=== PATIENT | female | born 1995 | race Caucasian/White ===

== ENCOUNTER 2022-08-09 12:36 | Inpatient (IN) ==
[2022-08-09] MEDS ORDERED: SODIUM CHLORIDE 0.9% 1000ML 1,000 ML IV STA (13:26)
[2022-08-09] MEDS ORDERED: ONDANSETRON INJ 2 MG/ML 2 ML VIAL IV STA (13:28)
[2022-08-09] MEDS: fentaNYL citrate 100 MCG/2 ML VIAL IV PRN ×2 (13:34→18:47)
--- NOTE | 2022-08-09 13:37 | Emergency Department Note ---
Impression & Plan Abscess of liver, Endometritis Hand Off ED Provider Note HPI: The patient is a 26-year-old female who presents to the emergency department after being seen by her [facility] provider, Dr. Downs, in the office today and there was concern for endometritis. Patient has a history of recent missed and was given Cytotec on 07/07/22, she has had some bleeding intermitt ently since then and developed some foul-smelling vaginal discharge over this past weekend, patient was started on Augmentin and she states from that standpoint her symptoms have improved. She was evaluated today in the office by [facility], Dr. Downs, she was noted to have a fever and had findings on pelvic exam that were concerning for endometritis, patient was also complaining of some chest discomfort that seem pleuritic in nature and she was tachycardic in addition to febrile and therefore was referred to the ED for further assessment. Patient also was complaining of some new onset right-sided abdominal pain. On arrival the patient is tearful, she is anxious appearing, she is mildly tachy cardic at 114 and noted to be febrile at 38.1, patient is saturating well on room air and blood pressure stable on arrival. ROS: -GI: Right-sided abdominal pain *10 point review systems was conducted and is otherwise negative unless stated above *Outpatient medications and allergy history reviewed PE: General: Alert HEENT: Normocephalic, trachea midline Eyes: Extraocular eye movement is intact, no scleral erythema Pulmonary: Clear to auscultation bilaterally, no wheezing Cardio: Regular rate and rhythm GI: Abdomen is soft, there is right-sided tenderness to palpation without rigidity : No suprapubic tenderness MSK: No evidence of trauma or malformation of the extremities, no edema Skin: No evidence of rash Neuro: Alert, no focal deficits Psychiatric: Cooperative hospital monitor: - An order was placed for continuous cardiac monitoring - Patient was noted to be in sinus tachycardia with a rate of 115 EKG: Rate: 107 Rhythm: Sinus tachycardia Intervals: Within normal limits ST changes: No ST elevation Time: 1350 Interventions provided in ED: -IV Unasyn, IV doxycycline, IV morphine, IV Zofran, IV fluid Medical Decision Making: Patient presented to the emergency department from the [facility] office over concern for endometritis as well as chest pain. On arrival here to the ED the patient is anxious appearing, she is tachycardic, she is saturating well on room air and otherwise is with stable blood pressure. IV was established, lab work obtained, previous notes reviewed. Patient was seen in the [facility] office today and had a pelvic exam performed that was concerning for endometritis, her symptoms in this regard have been improving over the past week while on Augmentin but there is some concern for retained products of conception on recent ultrasound imaging. Patient is tachycardic and febrile on arrival, blood cultures were drawn in the ED and patient was given IV fluids, she was started on IV Unasyn as well as IV doxycycline. Patient was given greater than 30 cc/kg of ideal body weight for fluid resuscitation given possibility of systemic infection with tachycardia and fever as well as leukocytosis. Patient complained of some chest pain as well as some right-sided abdominal pain, CT angiography of the chest was obtained that does not show any evidence of PE, CT abdomen and pelvis with IV contrast shows evidence of a 3.7 cm hepatic abscess. This is in the location where the patient is having pain. She has a mild leukocytosis and left shift in addition to the fact that she had a fever on arrival, COVID-19 testing is negative. I do suspect this may be playing a role in her symptoms, unclear how this might of developed. I discussed the case again with on-call [facility], Dr. Thompson, who recommended at this time that the patient be transferred for interventional radiology services, states that dilation and curettage can be performed urgently but does not need to be done emergently as the patient has improved symptomatically over the past several days from this regard and recent ultrasound imaging only showed a small nonspecific area concerning for retained products of conception. I discussed this with the patient, following our discussion decision was made that we will first contact [facility] in [place], [place], for arrangement of transfer for interventional radiology services and [facility] consultation in regards to possible D&C for endometritis. Case was then discussed with the on-call triage/transfer physician for [facility], Dr. Coppola, who stated that he would discussed the case and imaging with the interventional radiology team at [facility] and return a phone call back t o me in regards to possible transfer. Case was signed out to my colleague, Dr. Jimenez, pending recommendations from the [facility] center and Dr. Coppola once the case is reviewed with our interventional radiology team. We will plan to admit to [facility] here at [facility] on a temporary basis if there is an issue regarding interventional radiology or bed availability. Patient was signed out in stable condition pending final disposition. Diagnosis: 1. Hepatic abscess 2. Endometritis 3. Fever 4. Leukocytosis Disposition: Hand Off Isrrael Garcia DO Emergency Medicine Past Med/Surg History Medical History (Updated 08/09/22 @ 17:33 by Isrrael Garcia DO) History of in vitro fertilization Hypothyroid Surgical History (Updated 06/29/22 @ 13:20 by Brooklyn Downs MD, FACOG) History of tooth extraction Hx of LASIK Status post tonsillectomy and adenoidectomy Family History (Updated 06/29/22 @ 12:52 by Micki Hutchins LPN) Grandfather (Paternal) Prostate cancer Denies family history of Ovarian cancer Breast cancer Colorectal cancer Social History Smoking Status: Never smoker Hx Alcohol Use: Yes Hx Substance Use: No Preferred Language: Martiniquais Communication Ability: Effective Police Manager Required: No Beliefs That Will Affect Care: None Current Living Situation: Spouse Feels Safe at Home: Yes Safety Concerns: Feels Safe At This Time Assistive Devices: None Allergies Allergies Allergy/AdvReac Type Severity Reaction Status Date / Time pollen extracts Allergy Intermediate ITCHY Verified 08/09/22 18:12 EYES, SNEEZING, CONGESTION Home Meds Home Medications Medication Instructions Recorded Confirmed acetaminophen 500 mg tablet 1,000 mg PO DIRECTED PRN Pain 08/09/22 08/09/22 (Tylenol Extra Strength) docusate sodium 100 mg capsule 100 mg PO DIRECTED PRN 08/09/22 08/09/22 (Colace) Constipation ferrous sulfate 325 mg (65 mg 325 mg PO DAILY 08/09/22 08/09/22 iron) tablet (iron) ketorolac 10 mg tablet 10 mg PO TID PRN Pain 08/09/22 08/09/22 metronidazole 500 mg tablet 500 mg PO TID 08/09/22 08/09/22 sulfamethoxazole 800 1 tab PO BID 08/09/22 08/09/22 mg-trimethoprim 160 mg tablet (Bactrim DS) Previous Rx's Medication Instructions Recorded amoxicillin 875 mg-potassium 1 tab PO BID #20 tabs 08/06/22 clavulanate 125 mg tablet Results & Data (ED) Vital Signs Vital Signs - 24 hr 08/09/22 13:14 08/09/22 15:27 08/09/22 17:18 Temperature 38.1 C H Temperature Source Temporal Artery Scan Pulse Rate 114 H Pulse Rate [Apical] 113 H 106 H Respiratory Rate 20 16 16 Respiratory Effort / Characteristics Non-Labored Respiratory Depth Normal Respiratory Pattern Blood Pressure 127/71 Blood Pressure [Left Arm] 113/83 117/80 Blood Pressure Mean 89 Blood Pressure Mean [Left Arm] 93 92 Blood Pressure Position [Left Arm] Pulse Oximetry 96 100 99 Oxygen Delivery Method Room Air Sepsis Recent Fever Within 48 Hours Yes Sepsis New/Unexplained Change in Mental Status N/A Sepsis Action Taken by Nursing No Action Required 08/09/22 19:00 08/09/22 20:10 08/09/22 21:00 Temperature 39.5 C H Temperature Source Oral Pulse Rate Pulse Rate [Apical] 103 H 109 H Respiratory Rate 18 18 Respiratory Effort / Characteristics Non-Labored Spontaneous Non-Labored Spontaneous Respiratory Depth Normal Normal Respiratory Pattern Regular Regular Blood Pressure Blood Pressure [Left Arm] 138/72 125/78 Blood Pressure Mean Blood Pressure Mean [Left Arm] 94 93 Blood Pressure Position [Left Arm] Sitting Sitting Pulse Oximetry 97 96 Oxygen Delivery Method Room Air Room Air Sepsis Recent Fever Within 48 Hours Sepsis New/Unexplained Change in Mental Status Sepsis Action Taken by Nursing Laboratory Data Result diagrams: 08/10/22 06:11 08/10/22 06:11 Lab Results 08/09/22 08/09/22 08/09/22 Range/Units 13:37 13:37 13:37 WBC 11.60 H (4.8-10.8) K/ul RBC 3.61 L (3.93-5.22) M/uL Hgb 9.1 L (12.0-16.0) g/dl Hct 28.2 L (34.1-44.9) % MCV 78.1 L (80.0-100.0) fL MCH 25.2 (25.0-34.0) pg MCHC 32.3 (32.0-36.0) g/dL RDW Std Deviation 37.3 (36.4-46.3) fL RDW Coeff of Joey 13.0 (11.5-14.5) % Plt Count 327 (130-400) K/uL MPV 9.4 (9.4-12.3) fL Immature Gran % (Auto) 0.9 % Neut % (Auto) 77.8 % Lymph % (Auto) 12.9 % [place] % (Auto) 7.6 % Eos % (Auto) 0.5 % Baso % (Auto) 0.3 % Neut # (Auto) 9.01 H (1.4-6.5) K/uL Lymph # (Auto) 1.50 (1.2-3.4) K/uL [place] # (Auto) 0.88 H (0.24-0.82) K/uL Eos # (Auto) 0.06 (0-0.50) K/uL Baso # (Auto) 0.04 (0-0.2) K/uL Immature Gran # (Auto) 0.11 H (0.00-0.02) K/uL ESR 76 H (0-20) mm/hr Sodium 137 (136-145) mmol/L Potassium 3.9 (3.5-5.1) mmol/L Chloride 104 (98-107) mmol/L Carbon Dioxide 22 (21-32) mmol/L Anion Gap 11 (3-11) BUN 10 (6-23) mg/dl Creatinine 0.83 (0.6-1.2) mg/dl Est Cr Clr Drug Dosing 111.8 ml/min Est GFR ( Amer) 112.0 ml/min Est GFR (Non-Af Amer) 96.6 ml/min BUN/Creatinine Ratio 12.0 (10-20) Glucose 88 (70-99(Fasting)) mg/dl Lactate (0.4-2.0) mmol/L Calcium 9.1 (8.5-10.1) mg/dl Total Bilirubin 0.4 (0.2-1.0) mg/dl AST 20 (13-39) U/L ALT 32 (7-52) U/L Alkaline Phosphatase 112 H (34-104) U/L Troponin I High Sens < 2.3 (0-14) pg/ml C-Reactive Protein 13.47 H (0-0.5) mg/dl Total Protein 7.7 (6.0-8.3) gm/dl Albumin 3.8 (3.4-5.0) gm/dl Globulin 3.9 (2.5-4.0) gm/dl Albumin/Globulin Ratio 1.0 (0.9-2) Lipase 26 (11-82) U/L Procalcitonin (0-0.5) ng/ml HCG, Quant mIU/ml Urine Color Urine Appearance (Clear) Urine pH (4.5-7.5) Ur Specific [place] (1.000-1.030) Urine Protein (Negative) Urine Glucose (UA) (Negative) Urine Ketones (Negative) Urine Blood (Negative) Urine Nitrite (Negative) Urine Bilirubin (Negative) Urine Urobilinogen (Negative) Ur Leukocyte Esterase (Negative) SARS-CoV-2 (PCR) (Negative) Influenza Type A (PCR) (Neg) Influenza Type B (PCR) (Neg) RSV (RT-PCR) (Neg) Blood Type 08/09/22 08/09/22 08/09/22 Range/Units 13:37 13:37 13:37 WBC (4.8-10.8) K/ul RBC (3.93-5.22) M/uL Hgb (12.0-16.0) g/dl Hct (34.1-44.9) % MCV (80.0-100.0) fL MCH (25.0-34.0) pg MCHC (32.0-36.0) g/dL RDW Std Deviation (36.4-46.3) fL RDW Coeff of Joey (11.5-14.5) % Plt Count (130-400) K/uL MPV (9.4-12.3) fL Immature Gran % (Auto) % Neut % (Auto) % Lymph % (Auto) % [place] % (Auto) % Eos % (Auto) % Baso % (Auto) % Neut # (Auto) (1.4-6.5) K/uL Lymph # (Auto) (1.2-3.4) K/uL [place] # (Auto) (0.24-0.82) K/uL Eos # (Auto) (0-0.50) K/uL Baso # (Auto) (0-0.2) K/uL Immature Gran # (Auto) (0.00-0.02) K/uL ESR (0-20) mm/hr Sodium (136-145) mmol/L Potassium (3.5-5.1) mmol/L Chloride (98-107) mmol/L Carbon Dioxide (21-32) mmol/L Anion Gap (3-11) BUN (6-23) mg/dl Creatinine (0.6-1.2) mg/dl Est Cr Clr Drug Dosing ml/min Est GFR ( Amer) ml/min Est GFR (Non-Af Amer) ml/min BUN/Creatinine Ratio (10-20) Glucose (70-99(Fasting)) mg/dl Lactate 1.1 (0.4-2.0) mmol/L Calcium (8.5-10.1) mg/dl Total Bilirubin (0.2-1.0) mg/dl AST (13-39) U/L ALT (7-52) U/L Alkaline Phosphatase (34-104) U/L Troponin I High Sens (0-14) pg/ml C-Reactive Protein (0-0.5) mg/dl Total Protein (6.0-8.3) gm/dl Albumin (3.4-5.0) gm/dl Globulin (2.5-4.0) gm/dl Albumin/Globulin Ratio (0.9-2) Lipase (11-82) U/L Procalcitonin 0.24 (0-0.5) ng/ml HCG, Quant 4 mIU/ml Urine Color Urine Appearance (Clear) Urine pH (4.5-7.5) Ur Specific [place] (1.000-1.030) Urine Protein (Negative) Urine Glucose (UA) (Negative) Urine Ketones (Negative) Urine Blood (Negative) Urine Nitrite (Negative) Urine Bilirubin (Negative) Urine Urobilinogen (Negative) Ur Leukocyte Esterase (Negative) SARS-CoV-2 (PCR) (Negative) Influenza Type A (PCR) (Neg) Influenza Type B (PCR) (Neg) RSV (RT-PCR) (Neg) Blood Type 08/09/22 08/09/22 08/09/22 Range/Units 13:51 13:55 15:24 WBC (4.8-10.8) K/ul RBC (3.93-5.22) M/uL Hgb (12.0-16.0) g/dl Hct (34.1-44.9) % MCV (80.0-100.0) fL MCH (25.0-34.0) pg MCHC (32.0-36.0) g/dL RDW Std Deviation (36.4-46.3) fL RDW Coeff of Joey (11.5-14.5) % Plt Count (130-400) K/uL MPV (9.4-12.3) fL Immature Gran % (Auto) % Neut % (Auto) % Lymph % (Auto) % [place] % (Auto) % Eos % (Auto) % Baso % (Auto) % Neut # (Auto) (1.4-6.5) K/uL Lymph # (Auto) (1.2-3.4) K/uL [place] # (Auto) (0.24-0.82) K/uL Eos # (Auto) (0-0.50) K/uL Baso # (Auto) (0-0.2) K/uL Immature Gran # (Auto) (0.00-0.02) K/uL ESR (0-20) mm/hr Sodium (136-145) mmol/L Potassium (3.5-5.1) mmol/L Chloride (98-107) mmol/L Carbon Dioxide (21-32) mmol/L Anion Gap (3-11) BUN (6-23) mg/dl Creatinine (0.6-1.2) mg/dl Est Cr Clr Drug Dosing ml/min Est GFR ( Amer) ml/min Est GFR (Non-Af Amer) ml/min BUN/Creatinine Ratio (10-20) Glucose (70-99(Fasting)) mg/dl Lactate (0.4-2.0) mmol/L Calcium (8.5-10.1) mg/dl Total Bilirubin (0.2-1.0) mg/dl AST (13-39) U/L ALT (7-52) U/L Alkaline Phosphatase (34-104) U/L Troponin I High Sens (0-14) pg/ml C-Reactive Protein (0-0.5) mg/dl Total Protein (6.0-8.3) gm/dl Albumin (3.4-5.0) gm/dl Globulin (2.5-4.0) gm/dl Albumin/Globulin Ratio (0.9-2) Lipase (11-82) U/L Procalcitonin (0-0.5) ng/ml HCG, Quant mIU/ml Urine Color Yellow Urine Appearance Clear (Clear) Urine pH 7.0 (4.5-7.5) Ur Specific [place] 1.018 (1.000-1.030) Urine Protein Negative (Negative) Urine Glucose (UA) Negative (Negative) Urine Ketones Negative (Negative) Urine Blood Negative (Negative) Urine Nitrite Negative (Negative) Urine Bilirubin Negative (Negative) Urine Urobilinogen Negative (Negative) Ur Leukocyte Esterase Negative (Negative) SARS-CoV-2 (PCR) NEGATIVE (Negative) Influenza Type A (PCR) Negative (Neg) Influenza Type B (PCR) Negative (Neg) RSV (RT-PCR) Negative (Neg) Blood Type AB Negative Administered Medications Ferrous Sulfate (Ferrous Sulfate 325 Mg Tab) 325 mg PO DAILY [facility] Stop: 09/09/22 08:59 Last Admin: 08/10/22 07:55 Dose: Not Given Documented By: COLLIN Lactated Ringer's (Lr) 1,000 mls @ 125 mls/hr IV .Q8H [facility] Stop: 09/08/22 18:29 Last Admin: 08/10/22 04:50 Dose: 125 mls/hr Documented By: Infusion: 08/10/22 02:48 Dose: 125 mls/hr Documented By: Admin: 08/09/22 18:48 Dose: 125 mls/hr Documented By: GUILHERME Acetaminophen (Ofirmev) 1,000 mg in 100 mls @ 400 mls/hr IV Q8H PRN PRN Reason: pain or fever Stop: 08/12/22 23:23 Last Infusion: 08/10/22 02:06 Dose: 400 mls/hr Documented By: Admin: 08/10/22 01:47 Dose: 400 mls/hr Documented By: CHANA Metronidazole (Flagyl) 500 mg in 100 mls @ 100 mls/hr IV Q8H [facility] Stop: 08/12/22 05:59 Last Infusion: 08/10/22 07:55 Dose: 0 mls/hr Documented By: Admin: 08/10/22 06:15 Dose: 100 mls/hr Documented By: CHANA Fluconazole (Diflucan) 200 mg in 100 mls @ 100 mls/hr IV DAILY@0100,0200 [facility]; Protocol Stop: 08/12/22 00:59 Last Infusion: 08/10/22 06:15 Dose: 100 mls/hr Documented By: Admin: 08/10/22 03:58 Dose: 100 mls/hr Documented By: Infusion: 08/10/22 03:05 Dose: 100 mls/hr Documented By: Admin: 08/10/22 02:05 Dose: 100 mls/hr Documented By: CHANA Cefepime HCl 2,000 mg/ Syringe 20 mls @ 5 mls/min IV Q8H [facility]; Protocol Stop: 08/12/22 05:59 Last Admin: 08/10/22 08:36 Dose: 5 mls/min Documented By: COLLIN Morphine Sulfate (Morphine Sulfate 4 Mg/Ml 1 Ml Carp\Vial) 4 mg IV Q3H PRN PRN Reason: Pain (6,7,8,9,10) Stop: 08/23/22 23:23 Last Admin: 08/10/22 06:15 Dose: 4 mg Documented By: CHANA Discontinued Medications Diphenhydramine HCl (Diphenhydramine 50 Mg/Ml Vial) 25 mg IV NOW STA Stop: 08/10/22 01:48 Last Admin: 08/10/22 02:01 Dose: 25 mg Documented By: CHANA Fentanyl Citrate (Fentanyl Citrate 100 Mcg/2 Ml Vial) 50 mcg IV Q15M PRN PRN Reason: Pain Stop: 08/23/22 13:27 Last Admin: 08/09/22 18:47 Dose: 50 mcg Documented By: Admin: 08/09/22 13:34 Dose: 50 mcg Documented By: DA Sodium Chloride (Nss 1000ml) 1,000 mls @ 999 mls/hr IV .Q1H1M STA Stop: 08/09/22 14:26 Last Infusion: 08/09/22 15:30 Dose: 0 mls/hr Documented By: Admin: 08/09/22 13:35 Dose: 999 mls/hr Documented By: DA Ampicillin Sodium/Sulbactam Sodium 3,000 mg/ Sodium Chloride 108 mls @ 200 mls/hr IV NOW STA; Protocol Stop: 08/09/22 14:11 Last Infusion: 08/09/22 15:30 Dose: 0 mls/hr Documented By: Admin: 08/09/22 14:06 Dose: 200 mls/hr Documented By: MT Doxycycline Hyclate 100 mg/ (Dextrose) 110 mls @ 50 mls/hr IV NOW STA Stop: 08/09/22 15:50 Last Infusion: 08/09/22 18:40 Dose: 0 mls/hr Documented By: Admin: 08/09/22 15:24 Dose: 50 mls/hr Documented By: SHARIF Sodium Chloride (Nss 1000ml) 1,000 mls @ 999 mls/hr IV .Q1H1M ONE Stop: 08/09/22 16:54 Last Infusion: 08/09/22 18:40 Dose: 0 mls/hr Documented By: Admin: 08/09/22 16:20 Dose: 999 mls/hr Documented By: SHARIF Ampicillin Sodium/Sulbactam Sodium 3,000 mg/ Sodium Chloride 108 mls @ 200 mls/hr IV Q6H [facility]; Protocol Stop: 08/11/22 19:59 Last Infusion: 08/10/22 06:32 Dose: 200 mls/hr Documented By: Admin: 08/10/22 04:53 Dose: 200 mls/hr Documented By: Infusion: 08/09/22 20:41 Dose: 0 mls/hr Documented By: Admin: 08/09/22 20:07 Dose: 200 mls/hr Documented By: VALENTINA Acetaminophen (Ofirmev) 1,000 mg in 100 mls @ 400 mls/hr IV NOW STA Stop: 08/09/22 20:27 Last Infusion: 08/09/22 21:12 Dose: 0 mls/hr Documented By: Admin: 08/09/22 20:41 Dose: 400 mls/hr Documented By: HAN Metronidazole (Flagyl) 500 mg in 100 mls @ 100 mls/hr IV NOW STA Stop: 08/09/22 22:07 Last Infusion: 08/09/22 22:58 Dose: 0 mls/hr Documented By: Admin: 08/09/22 21:40 Dose: 100 mls/hr Documented By: SIERRA Vancomycin HCl 2,250 mg/ (Sodium Chloride) 545 mls @ 200 mls/hr IV NOW ONE Stop: 08/09/22 23:51 Last Infusion: 08/10/22 04:51 Dose: 200 mls/hr Documented By: Admin: 08/09/22 23:34 Dose: 200 mls/hr Documented By: HJ Famotidine 20 mg/ Syringe 5 mls @ 2.5 mls/min IV 0200 ONE Stop: 08/10/22 02:01 Last Admin: 08/10/22 02:01 Dose: 2.5 mls/min Documented By: CHANA Ioversol (Optiray 320 125ml) 105 ml IV ONCE ONE Stop: 08/09/22 15:17 Last Admin: 08/09/22 15:16 Dose: 105 ml Documented By: BEN Ondansetron HCl (Ondansetron Inj 2 Mg/Ml 2 Ml Vial) 4 mg IV NOW STA Stop: 08/09/22 13:29 Last Admin: 08/09/22 13:34 Dose: 4 mg Documented By: DA Imaging Data Radiologist's Impression: Chest X-Ray 08/09/22 13:27 XR chest 1V portable CLINICAL HISTORY: Fever. COMPARISON STUDY: No previous studies for comparison. FINDINGS: Lung volumes are mildly diminished. Lungs are clear. There is no pneumothorax or pleural effusion. Cardiac size is normal. Mediastinal contours are normal. There is no evidence for pulmonary edema. IMPRESSION: No acute cardiopulmonary findings. Low lung volumes. ACT 112: Negative or not required by law. Electronically signed by: Jose Schaeffer M.D. 08/09/2022 3:01 PM Chest CTA 08/09/22 13:31 CT angio chest PE protocol CLINICAL HISTORY: PE TECHNIQUE: Multidetector row helical CT of the chest was performed with angiographic protocol. Coronal and sagittal reformations were obtained. Coronal and sagittal MIPS were obtained from the axial data set and were submitted for review. Automated dose lowering techniques and/or adjustment according to patient size were utilized for this exam. CT DOSE: 1522.56 mGycm Comparison: Comparison is made to chest radiograph 08/09/2022 FINDINGS: Lungs and pleura: Normal. Heart and pericardium: Heart size is normal. No pericardial effusion. Vessels: No evidence of pulmonary embolism. Mediastinum and eric: Unremarkable. Chest wall and lower neck: Unremarkable. Abdomen: For findings below the diaphragm, please refer to CT of the abdomen dated the same. Bones: Unremarkable. IMPRESSION: No evidence of pulmonary embolism. ACT 112: Negative or not required by law. Electronically signed by: Orlando Mendieta M.D. 08/09/2022 3:47 PM Abdomen/Pelvis CT 08/09/22 13:32 CT OF THE ABDOMEN AND PELVIS WITH CONTRAST CLINICAL HISTORY: Right-sided abdominal pain. COMPARISON STUDY: Pelvic ultrasound July 30, 2022. TECHNIQUE: Following IV administration of 105 mL of Optiray, axial images of the abdomen and pelvis were obtained from the lung bases to the proximal femurs. Images were reviewed in the axial, sagittal, and coronal planes. IV contrast was administered without complication. Automated exposure control was utilized for the study. A dose lowering technique was utilized adhering to the principles of ALARA. FINDINGS: Please note that the chest CT will be reported separately. There is a trace right pleural effusion. Note is made of a 3.7 x 2.6 cm segment 7 hypodense focus within the liver with a peripherally enhancing wall with probable associated edema. This is suggestive of a hepatic abscess. There is mild hepatosplenomegaly. No additional hepatic abscesses are present. The adrenal glands, kidneys and pancreas are unremarkable. There is no biliary or pancreatic ductal dilatation. There is no evidence for a bowel obstruction. The caliber and wall thickness of small and large bowel are normal. The appendix is normal. There is trace fluid within the pelvis. The lymphadenopathy is present. Major vasculature is patent. No acute fracture or suspicious lesion within the visualized skeletal structures is present. IMPRESSION: 1. Findings suggestive of a 3.7 x 2.6 cm segment 7 hepatic abscess. Trace right pleural effusion. 2. Mild hepatosplenomegaly. 3. No bowel obstruction. No bowel wall thickening. Normal appendix. 4. Trace fluid within the pelvis. ACT 112: Negative or not required by law. Electronically signed by: Jose Schaeffer M.D. 08/09/2022 3:44 PM Discharge Plan Visit Data Chief Complaint: Referred by Doctor Stated Complaint: REF BY , SEAN, ABDOMINAL PAIN, PELVIC PAIN ED Provider: Triston Jimenez Discharge Problem: Abscess of liver, Endometritis Patient Disposition: Admitted As Inpatient Discharge Instructions Interventions: ED Discharge Assessment Last Done: 08/09/22 23:22
[2022-08-09] MEDS ORDERED: DOXYCYCLINE HYCLATE 100 MG in DEXTROSE 5% 100 ML IV STA (13:39)
[2022-08-09] MEDS ORDERED: AMPICILLIN/SULBACTAM SOD 3,000 MG in 0.9 % SODIUM CHLORIDE 100 ML IV STA (13:39)
[2022-08-09 13:56] LABS: Basophils # (auto) 0.04 K/uL (0-0.2); Basophils % (auto) 0.3 %; Eosinophils # (auto) 0.06 K/uL (0-0.50); Eosinophils % (auto) 0.5 %; Hematocrit (blood only) 28.2 % (34.1-44.9); Hemoglobin 9.1 g/dl (12.0-16.0); Immature Granulocytes # (auto) 0.11 K/uL (0.00-0.02); Immature Granulocytes % (auto) 0.9 %; Lymphocytes % (auto) 12.9 %; Mean Corpuscular Hemoglobin 25.2 pg (25.0-34.0); Mean Corpuscular Hgb Conc 32.3 g/dL (32.0-36.0); Mean Corpuscular Volume 78.1 fL (80.0-100.0); Mean Platelet Volume 9.4 fL (9.4-12.3); Monocytes # (auto) 0.88 K/uL (0.24-0.82); Monocytes % (auto) 7.6 %; Neutrophils # (auto) 9.01 K/uL (1.4-6.5); Neutrophils % (auto) 77.8 %; Platelet Count 327 K/uL (130-400); RDW Standard Deviation 37.3 fL (36.4-46.3); Red Blood Count 3.61 M/uL (3.93-5.22)
[2022-08-09 14:25] LABS: Troponin I High Sensitivity < 2.3 pg/ml (0-14)
[2022-08-09 14:38] LABS: Alanine Aminotransferase 32 U/L (7-52); Albumin Level 3.8 gm/dl (3.4-5.0); Alkaline Phosphatase 112 U/L (34-104); Anion Gap 11 (3-11); Aspartate Aminotransferase 20 U/L (13-39); Bilirubin,Total 0.4 mg/dl (0.2-1.0); Blood Urea Nitrogen 10 mg/dl (6-23); C Reactive Protein 13.47 mg/dl (0-0.5); Calcium 9.1 mg/dl (8.5-10.1); Carbon Dioxide 22 mmol/L (21-32); Chloride 104 mmol/L (98-107); Creatinine Clr Calc Pharmacy 111.8 ml/min; Est GFR (Non-African American) 96.6 ml/min; Globulin 3.9 gm/dl (2.5-4.0); Glucose 88 mg/dl (70-99(Fasting)); Lipase 26 U/L (11-82); Potassium 3.9 mmol/L (3.5-5.1); Sodium 137 mmol/L (136-145); Total Protein 7.7 gm/dl (6.0-8.3)
[2022-08-09 14:53] LABS: Influenza A virus by PCR Negative (Neg); Influenza B virus by PCR Negative (Neg); RSV by PCR Negative (Neg); SARS CoV2 RNA(COVID-19) InHosp NEGATIVE (Negative)
--- NOTE | 2022-08-09 15:02 | XRay Report ---
XR chest 1V portable CLINICAL HISTORY: Fever. COMPARISON STUDY: No previous studies for comparison. FINDINGS: Lung volumes are mildly diminished. Lungs are clear. There is no pneumothorax or pleural ef fusion. Cardiac size is normal. Mediastinal contours are normal. There is no evidence for pulmonary e ilia. IMPRESSION: No acute cardiopulmonary findings. Low lung volumes. ACT 112: Negative or not required by law. Electronically signed by: Jose Schaeffer M.D. 08/09/2022 3:01 PM
[2022-08-09] MEDS ORDERED: OPTIRAY 320 125ml IV ONE (15:16)
--- NOTE | 2022-08-09 15:45 | CT Scan Report ---
CT OF THE ABDOMEN AND PELVIS WITH CONTRAST CLINICAL HISTORY: Right-sided abdominal pain. COMPARISON STUDY: Pelvic ultrasound July 30, 2022. TECHNIQUE: Following IV administration of 105 mL of Optiray, axial images of the abdomen and pelvis w ere obtained from the lung bases to the proximal femurs. Images were reviewed in the axial, sagittal, and coronal planes. IV contrast was administered without complication. Automated exposure control w as utilized for the study. A dose lowering technique was utilized adhering to the principles of JOSÉ ANTONIO French. FINDINGS: Please note that the chest CT will be reported separately. There is a trace right pleural effusion. Note is made of a 3.7 x 2.6 cm segment 7 hypodense focus within the liver with a peripheral ly enhancing wall with probable associated edema. This is suggestive of a hepatic abscess. There is m ild hepatosplenomegaly. No additional hepatic abscesses are present. The adrenal glands, kidneys and pancreas are unremarkable. There is no biliary or pancreatic ductal dilatation. There is no evidence for a bowel obstruction. The caliber and wall thickness of small and large bowel are normal. The appe ndix is normal. There is trace fluid within the pelvis. The lymphadenopathy is present. Major vascula ture is patent. No acute fracture or suspicious lesion within the visualized skeletal structures is p resent. IMPRESSION: 1. Findings suggestive of a 3.7 x 2.6 cm segment 7 hepatic abscess. Trace right pleural effusion. 2. Mild hepatosplenomegaly. 3. No bowel obstruction. No bowel wall thickening. Normal appendix. 4. Trace fluid within the pelvis. ACT 112: Negative or not required by law. Electronically signed by: Jose Schaeffer M.D. 08/09/2022 3:44 PM
--- NOTE | 2022-08-09 15:48 | CT Scan Report ---
CT angio chest PE protocol CLINICAL HISTORY: PE TECHNIQUE: Multidetector row helical CT of the chest was performed with angiographic protocol. Ruiz l and sagittal reformations were obtained. Coronal and sagittal MIPS were obtained from the axial kaley a set and were submitted for review. Automated dose lowering techniques and/or adjustment according to patient size were utilized for this exam. CT DOSE: 1522.56 mGycm Comparison: Comparison is made to chest radiograph 08/09/2022 FINDINGS: Lungs and pleura: Normal. Heart and pericardium: Heart size is normal. No pericardial effusion. Vessels: No evidence of pulmonary embolism. Mediastinum and eric: Unremarkable. Chest wall and lower neck: Unremarkable. Abdomen: For findings below the diaphragm, please refer to CT of the abdomen dated the same. Bones: Unremarkable. IMPRESSION: No evidence of pulmonary embolism. ACT 112: Negative or not required by law. Electronically signed by: Orlando Mendieta M.D. 08/09/2022 3:47 PM
[2022-08-09] MEDS ORDERED: SODIUM CHLORIDE 0.9% 1000ML 1,000 ML IV ONE (15:54)
[2022-08-09 16:08] LABS: Appearance Urine Clear (Clear); Bilirubin Urine Negative (Negative); Blood Urine Negative (Negative); Color Urine Yellow; Glucose Urine UA Negative (Negative); Ketones Urine Negative (Negative); Leukocyte Esterase Urine Negative (Negative); Nitrite Urine Negative (Negative); Protein Urine Negative (Negative); Specific Gravity Urine 1.018 (1.000-1.030); Urobilinogen Urine Negative (Negative)
--- NOTE | 2022-08-09 18:28 | Emergency Department Note ---
ED Visit Note The patient was taken signout from Dr. Garcia at change of shift. Please see his note for details of the patient's presentation and management and d isposition. In brief the patient is a 26-year-old woman who presents to the emergency department with concern for retained products following a miscarriage in June noted to be febrile and tachycardic. She had a CT of the abdomen pelvis that demonstrated a 4 cm lesion suspicious for liver abscess. Case was reviewed with [employer] [employer] MANAGER who manages the patient and recommends transfer to tertiary care center where IR may address the liver abscess as well as proceed with D&C which had been planned. Patient was treated with IV antibiotics including Unasyn and doxycycline. Scheduled antibiotics were ordered. The patient received 30 cc/kg. The patient has remained hemodynamically stable. At the time of signout awaiting callback from [facility] triage provider to confirm that IR feels liver abscess is amenable to IR intervention to then to accept for transfer. Unfortunately, IR has been unavailable due to an active case. I discussed the transfer again with triage officer, Dr. Surendra Cristina who reports that at this time [facility] does not have available beds regardless. Therefore he will continue to review the case and images with IR once they are available but the patient will not be able to be transferred until tomorrow. They will keep the patient in the queue for bed placement anticipating she will be accepted tomorrow for transfer. They are aware we would admit here in the interim until this plan is finalized. Case was discussed with Dr. Thompson, [facility]. Recommends admission to medicine for further management given primary source for infection is liver abscess. Case was discussed with Dr. Zhu, [facility] [place] [place] hospitalist, who will evaluate the patient for admission. Metronidazole and Vancomycin added. Additional treatment per admitting team. Critical Care: I have personally spent greater than 35 minutes of critical care time in the direct management of this patient. This includes bedside care, interpretation of diagnostic studies, and testing, discussion with consultants, patient, and family members, and other required patient management activities. This 35 minutes is in excess of all separately billable procedures. .
[2022-08-09] MEDS: LACTATED RINGER'S 1,000 ML IV SCH (18:48)
[2022-08-09] MEDS: AMPICILLIN/SULBACTAM SOD 3,000 MG in 0.9 % SODIUM CHLORIDE 100 ML IV SCH (20:07)
[2022-08-09] MEDS ORDERED: ACETAMINOPHEN 1,000 MG/100 ML VIAL IV STA (20:13)
[2022-08-09] MEDS ORDERED: metroNIDAZOLE 500 MG/100 ML BAG IV STA (21:08)
[2022-08-09] MEDS ORDERED: VANCOMYCIN HCL 2,250 MG in SODIUM CHLORIDE 0.9% 500 ML IV ONE (21:08)
[2022-08-09] MEDS ORDERED: VANCOMYCIN CONSULT ACTIVE PRN ×2 (21:08→23:24)
--- NOTE | 2022-08-09 21:55 | History & Physical Report ---
Date of Service August 09, 2022 Assessment & Plan (1) Endometritis: Plan: [place] is a 26 yo female with PMHx of anemia and currently undergoing infertility evaluation/treatments, admitted to [facility] on 08/09/22 for endometritis and hepatic abscess. Hepatic abscess - CT abd/pelvis: "findings suggestive of a 3.7 x 2.6 cm segment 7 hepatic abscess. Trace right pleural effusion. Mild hepatosplenomegaly. No bowel obstruction. No bowel wall thickening. Normal appendix. Trace fluid within the pelvis." - Mild leukocytosis with WBC 11.6 and Tmax 39.5 - Given concomitant pelvic infection/endometritis, will treat abscess and infection with broad spectrum antibiotic and antifungals - IV vanco, flagyl, doxycycline, and unasyn given in the ER - Will continue IV vancomycin and IV flagyl. Start IV cefepime and IV fluconazole. - Patient to be made NPO pending transfer and potential procedural intervention - IVF with LR at 125 cc/hr - IV analgesic and antiemetics - Blood cultures ordered and pending - CBC qAM - Due to the concern for hepatic abscess, recommendations made for patient to be transferred to [facility] for IR evaluation to address the hepatic abscess as well as D&C. Patient will be admitted pending transfer/bed availability. Endometritis - ? concern for retained products of conception requiring D&C - Abx management as above - IV analgesics and antiemetics Anemia - Chronic anemia - Continue home ferrous sulfate 325mg po daily FENGI: NPO. IVF with LR at 125 cc/hr Dispo: Admit to [facility] DVT ppx: Will hold pending potential procedural intervention. Encourage frequent ambulation. Code status: FULL CODE (2) Abscess of liver: (3) Missed : History of Present Illness Primary Care Provider: NO PCP [place] is a 26 yo female with PMHx of anemia, currently undergoing infertility evaluation/treatments, presented to the [facility] ER on 08/09/22 for concern of endometritis. Patient states that about 1 month ago, she was found to have a missed after spontaneous while undergoing infertility workup. This was her first confirmed . She underwent medical management with cytotec. Patient subsequently had 29 days of vaginal bleeding which stopped last week. Over the weekend (5 days ago), patient developed a foul smelling yellow/green vaginal discharge with associated abdominal pain, fevers and chills. The abdominal pain is mostly located in the suprapubic region with an additional region of pain in the right upper quadrant. Patient was started on Augmentin as outpatient and notes the the discharge has improved. Other symptoms including pain, fever, and chills have been persistent since onset 5 days ago. S he does note some associated shortness of breath but describes this as more of a difficulty taking a deep breath due to the abdominal pain. She denies nausea or vomiting. Denies CP. Denies RAMOS. Patient was evaluated by her DIGITAL PRODUCER in office today for her symptoms and referred to the ER due to the concern of endometritis. In the ER, patient remains febrile with Tmax 39.5. Labs reveal mildly elevated WBC 11.6. Hgb 9.1. BMP unremarkable. Elevated CRP at 13.47. HCG 4. UA unremarkable. COVID negative. CXR is negative. Chest CTA is without evidence of PE. Abd/pelvis CT with " findings suggestive of a 3.7 x 2.6 cm segment 7 hepatic abscess. Trace right pleural effusion. Mild hepatosplenomegaly. No bowel obstruction. No bowel wall thickening. Normal appendix. Trace fluid within the pelvis." Due to the concern for hepatic abscess, recommendations made for patient to be transferred to tertiary care center for IR evaluation to address the hepatic abscess as well as D&C. Patient will be admitted pending transfer/bed availability. Allergies Allergy/AdvReac Type Severity Reaction Status Date / Time pollen extracts Allergy Intermediate ITCHY Verified 08/09/22 18:12 EYES, SNEEZING, CONGESTION vancomycin Allergy Rash, Verified 08/10/22 12:34 itching Home Medications Medication Instructions Recorded Confirmed Type acetaminophen 500 mg tablet 1,000 mg PO DIRECTED PRN Pain 08/09/22 08/09/22 History (Tylenol Extra Strength) docusate sodium 100 mg capsule 100 mg PO DIRECTED PRN 08/09/22 08/09/22 History (Colace) Constipation ferrous sulfate 325 mg (65 mg 325 mg PO DAILY 08/09/22 08/09/22 History iron) tablet (iron) ketorolac 10 mg tablet 10 mg PO TID PRN Pain 08/09/22 08/09/22 History Past Med/Surg History Medical History (Updated 08/10/22 @ 12:34 by Magalie Bran PA-C) History of in vitro fertilization Hypothyroid Surgical History (Updated 06/29/22 @ 13:20 by Brooklyn Downs MD, FACOG) History of tooth extraction Hx of LASIK Status post tonsillectomy and adenoidectomy Family History (Updated 06/29/22 @ 12:52 by Micki Hutchisn LPN) Grandfather (Paternal) Prostate cancer Denies family history of Ovarian cancer Breast cancer Colorectal cancer Social History Smoking Status: Never smoker Hx Alcohol Use: Yes Hx Substance Use: No Preferred Language: Croatian Communication Ability: Effective Nursing Clinical Director Required: No Beliefs That Will Affect Care: None Current Living Situation: Spouse Feels Safe at Home: Yes Safety Concerns: Feels Safe At This Time Assistive Devices: None Review of Systems Review of Systems: See HPI Physical Exam Physical Exam: GENERAL: Patient diaphoretic stating "my fever is breaking." She is otherwise in no acute distress. Well developed and well nourished. Vital signs reviewed as above. EYES: PERRLA. EOMI. Anicteric sclerae. HENT: Moist mucous membranes. No pharyngeal erythema or exudates. RESPIRATORY: Clear to auscultation bilaterally. No wheezing, rales, or rhonchi. CARDIOVASCULAR: Regular rate and rhythm. No murmurs. No JVD. ABDOMEN: Soft, non-tender and non-distended. Normal bowel sounds. EXTREMITIES: No edema. Non-tender. SKIN: Warm, dry. NEUROLOGIC: A/O x3. Normal speech. No focal neurological deficits. 5/5 strength in BUE and BLE. PSYCHIATRIC: Cooperative. Appropriate mood and affect. Results & Data Results & Data ([facility]) Vital Signs (Past 12 Hours) Vital Signs Temp Pulse Pulse Resp BP BP Pulse Ox 08/09/22 21:00 109 H 18 125/78 96 08/09/22 20:10 39.5 C H 08/09/22 19:00 103 H 18 138/72 97 08/09/22 17:18 106 H 16 117/80 99 08/09/22 15:27 113 H 16 113/83 100 08/09/22 13:14 38.1 C H 114 H 20 127/71 96 O2 Del Method 08/09/22 21:00 Room Air 08/09/22 20:10 08/09/22 19:00 Room Air 08/09/22 17:18 08/09/22 15:27 08/09/22 13:14 Room Air Laboratory Results 08/09/22 08/09/22 08/09/22 Range/Units 15:24 13:55 13:51 WBC (4.8-10.8) K/ul RBC (3.93-5.22) M/uL Hgb (12.0-16.0) g/dl Hct (34.1-44.9) % MCV (80.0-100.0) fL MCH (25.0-34.0) pg MCHC (32.0-36.0) g/dL RDW Std Deviation (36.4-46.3) fL RDW Coeff of Joey (11.5-14.5) % Plt Count (130-400) K/uL MPV (9.4-12.3) fL Immature Gran % (Auto) % Neut % (Auto) % Lymph % (Auto) % [place] % (Auto) % Eos % (Auto) % Baso % (Auto) % Neut # (Auto) (1.4-6.5) K/uL Lymph # (Auto) (1.2-3.4) K/uL [place] # (Auto) (0.24-0.82) K/uL Eos # (Auto) (0-0.50) K/uL Baso # (Auto) (0-0.2) K/uL Immature Gran # (Auto) (0.00-0.02) K/uL ESR (0-20) mm/hr Sodium (136-145) mmol/L Potassium (3.5-5.1) mmol/L Chloride (98-107) mmol/L Carbon Dioxide (21-32) mmol/L Anion Gap (3-11) BUN (6-23) mg/dl Creatinine (0.6-1.2) mg/dl Est Cr Clr Drug Dosing ml/min Est GFR ( Amer) ml/min Est GFR (Non-Af Amer) ml/min BUN/Creatinine Ratio (10-20) Glucose (70-99(Fasting)) mg/dl Lactate (0.4-2.0) mmol/L Calcium (8.5-10.1) mg/dl Total Bilirubin (0.2-1.0) mg/dl AST (13-39) U/L ALT (7-52) U/L Alkaline Phosphatase (34-104) U/L Troponin I High Sens (0-14) pg/ml C-Reactive Protein (0-0.5) mg/dl Total Protein (6.0-8.3) gm/dl Albumin (3.4-5.0) gm/dl Globulin (2.5-4.0) gm/dl Albumin/Globulin Ratio (0.9-2) Lipase (11-82) U/L Procalcitonin (0-0.5) ng/ml HCG, Quant mIU/ml Urine Color Yellow Urine Appearance Clear (Clear) Urine pH 7.0 (4.5-7.5) Ur Specific [place] 1.018 (1.000-1.030) Urine Protein Negative (Negative) Urine Glucose (UA) Negative (Negative) Urine Ketones Negative (Negative) Urine Blood Negative (Negative) Urine Nitrite Negative (Negative) Urine Bilirubin Negative (Negative) Urine Urobilinogen Negative (Negative) Ur Leukocyte Esterase Negative (Negative) SARS-CoV-2 (PCR) NEGATIVE (Negative) Influenza Type A (PCR) Negative (Neg) Influenza Type B (PCR) Negative (Neg) RSV (RT-PCR) Negative (Neg) Blood Type AB Negative 08/09/22 08/09/22 08/09/22 Range/Units 13:37 13:37 13:37 WBC (4.8-10.8) K/ul RBC (3.93-5.22) M/uL Hgb (12.0-16.0) g/dl Hct (34.1-44.9) % MCV (80.0-100.0) fL MCH (25.0-34.0) pg MCHC (32.0-36.0) g/dL RDW Std Deviation (36.4-46.3) fL RDW Coeff of Joey (11.5-14.5) % Plt Count (130-400) K/uL MPV (9.4-12.3) fL Immature Gran % (Auto) % Neut % (Auto) % Lymph % (Auto) % [place] % (Auto) % Eos % (Auto) % Baso % (Auto) % Neut # (Auto) (1.4-6.5) K/uL Lymph # (Auto) (1.2-3.4) K/uL [place] # (Auto) (0.24-0.82) K/uL Eos # (Auto) (0-0.50) K/uL Baso # (Auto) (0-0.2) K/uL Immature Gran # (Auto) (0.00-0.02) K/uL ESR (0-20) mm/hr Sodium (136-145) mmol/L Potassium (3.5-5.1) mmol/L Chloride (98-107) mmol/L Carbon Dioxide (21-32) mmol/L Anion Gap (3-11) BUN (6-23) mg/dl Creatinine (0.6-1.2) mg/dl Est Cr Clr Drug Dosing ml/min Est GFR ( Amer) ml/min Est GFR (Non-Af Amer) ml/min BUN/Creatinine Ratio (10-20) Glucose (70-99(Fasting)) mg/dl Lactate 1.1 (0.4-2.0) mmol/L Calcium (8.5-10.1) mg/dl Total Bilirubin (0.2-1.0) mg/dl AST (13-39) U/L ALT (7-52) U/L Alkaline Phosphatase (34-104) U/L Troponin I High Sens (0-14) pg/ml C-Reactive Protein (0-0.5) mg/dl Total Protein (6.0-8.3) gm/dl Albumin (3.4-5.0) gm/dl Globulin (2.5-4.0) gm/dl Albumin/Globulin Ratio (0.9-2) Lipase (11-82) U/L Procalcitonin 0.24 (0-0.5) ng/ml HCG, Quant 4 mIU/ml Urine Color Urine Appearance (Clear) Urine pH (4.5-7.5) Ur Specific [place] (1.000-1.030) Urine Protein (Negative) Urine Glucose (UA) (Negative) Urine Ketones (Negative) Urine Blood (Negative) Urine Nitrite (Negative) Urine Bilirubin (Negative) Urine Urobilinogen (Negative) Ur Leukocyte Esterase (Negative) SARS-CoV-2 (PCR) (Negative) Influenza Type A (PCR) (Neg) Influenza Type B (PCR) (Neg) RSV (RT-PCR) (Neg) Blood Type 08/09/22 08/09/22 08/09/22 Range/Units 13:37 13:37 13:37 WBC 11.60 H (4.8-10.8) K/ul RBC 3.61 L (3.93-5.22) M/uL Hgb 9.1 L (12.0-16.0) g/dl Hct 28.2 L (34.1-44.9) % MCV 78.1 L (80.0-100.0) fL MCH 25.2 (25.0-34.0) pg MCHC 32.3 (32.0-36.0) g/dL RDW Std Deviation 37.3 (36.4-46.3) fL RDW Coeff of Joey 13.0 (11.5-14.5) % Plt Count 327 (130-400) K/uL MPV 9.4 (9.4-12.3) fL Immature Gran % (Auto) 0.9 % Neut % (Auto) 77.8 % Lymph % (Auto) 12.9 % [place] % (Auto) 7.6 % Eos % (Auto) 0.5 % Baso % (Auto) 0.3 % Neut # (Auto) 9.01 H (1.4-6.5) K/uL Lymph # (Auto) 1.50 (1.2-3.4) K/uL [place] # (Auto) 0.88 H (0.24-0.82) K/uL Eos # (Auto) 0.06 (0-0.50) K/uL Baso # (Auto) 0.04 (0-0.2) K/uL Immature Gran # (Auto) 0.11 H (0.00-0.02) K/uL ESR 76 H (0-20) mm/hr Sodium 137 (136-145) mmol/L Potassium 3.9 (3.5-5.1) mmol/L Chloride 104 (98-107) mmol/L Carbon Dioxide 22 (21-32) mmol/L Anion Gap 11 (3-11) BUN 10 (6-23) mg/dl Creatinine 0.83 (0.6-1.2) mg/dl Est Cr Clr Drug Dosing 111.8 ml/min Est GFR ( Amer) 112.0 ml/min Est GFR (Non-Af Amer) 96.6 ml/min BUN/Creatinine Ratio 12.0 (10-20) Glucose 88 (70-99(Fasting)) mg/dl Lactate (0.4-2.0) mmol/L Calcium 9.1 (8.5-10.1) mg/dl Total Bilirubin 0.4 (0.2-1.0) mg/dl AST 20 (13-39) U/L ALT 32 (7-52) U/L Alkaline Phosphatase 112 H (34-104) U/L Troponin I High Sens < 2.3 (0-14) pg/ml C-Reactive Protein 13.47 H (0-0.5) mg/dl Total Protein 7.7 (6.0-8.3) gm/dl Albumin 3.8 (3.4-5.0) gm/dl Globulin 3.9 (2.5-4.0) gm/dl Albumin/Globulin Ratio 1.0 (0.9-2) Lipase 26 (11-82) U/L Procalcitonin (0-0.5) ng/ml HCG, Quant mIU/ml Urine Color Urine Appearance (Clear) Urine pH (4.5-7.5) Ur Specific [place] (1.000-1.030) Urine Protein (Negative) Urine Glucose (UA) (Negative) Urine Ketones (Negative) Urine Blood (Negative) Urine Nitrite (Negative) Urine Bilirubin (Negative) Urine Urobilinogen (Negative) Ur Leukocyte Esterase (Negative) SARS-CoV-2 (PCR) (Negative) Influenza Type A (PCR) (Neg) Influenza Type B (PCR) (Neg) RSV (RT-PCR) (Neg) Blood Type Diagnostic Findings [place], [place] [phone] CT Scan Report Patient:BOSTON SANTOYO V Admit Date:08/09/22 MR#:[id number] Address1:[address] [place] [address] Acct ID:[id number] Address2: Date:1995 [facility] Zip:[place] [address] Age:26 Location:ED Sex:F Room/Bed: Att Phy: Diagnosis:REF BY SEAN DUEÑAS, ABDOMINAL PAIN, PELVIC PAIN Jana Phy:PCP,NO Service Date:08/09/22 Fam Phy: Interpreting Phy:Jose Schaeffer MDAdenis Phy: Ordering Phy:Isrrael Garcia DO cc: ~ CT OF THE ABDOMEN AND PELVIS WITH CONTRAST CLINICAL HISTORY: Right-sided abdominal pain. COMPARISON STUDY: Pelvic ultrasound July 30, 2022. TECHNIQUE: Following IV administration of 105 mL of Optiray, axial images of the abdomen and pelvis were obtained from the lung bases to the proximal femurs. Images were reviewed in the axial, sagittal, and coronal planes. IV contrast was administered without complication. Automated exposure control was utilized for the study. A dose lowering technique was utilized adhering to the principles of ALARA. FINDINGS: Please note that the chest CT will be reported separately. There is a trace right pleural effusion. Note is made of a 3.7 x 2.6 cm segment 7 hypodense focus within the liver with a peripherally enhancing wall with probable associated edema. This is suggestive of a hepatic abscess. There is mild hepatosplenomegaly. No additional hepatic abscesses are present. The adrenal glands, kidneys and pancreas are unremarkable. There is no biliary or pancreatic ductal dilatation. There is no evidence for a bowel obstruction. The caliber and wall thickness of small and large bowel are normal. The appendix is normal. The re is trace fluid within the pelvis. The lymphadenopathy is present. Major vasculature is patent. No acute fracture or suspicious lesion within the visualized skeletal structures is present. IMPRESSION: 1. Findings suggestive of a 3.7 x 2.6 cm segment 7 hepatic abscess. Trace right pleural effusion. 2. Mild hepatosplenomegaly. 3. No bowel obstruction. No bowel wall thickening. Normal appendix. 4. Trace fluid within the pelvis. ACT 112: Negative or not required by law. Electronically signed by: Jose Schaeffer M.D. 08/09/2022 3:44 PM Dictated:08/09/22 1535 Transcribed: 08/09/22 1536 [facility] [phone] CT Scan Report Patient:BOSTON SANTOYO V Admit Date:08/09/22 MR#:[id number] Address1:[address] [place] [address] Acct ID:[id number] Address2: Date:1995 [facility] Zip:[place] [address] Age:26 Location:ED Sex:F Room/Bed: Att Phy: Diagnosis:REF BY SEAN DUEÑAS, ABDOMINAL PAIN, PELVIC PAIN Jana Phy:PCP,NO Service Date:08/09/22 Benjamin Phy: Interpreting Phy:Orlando Mendieta MDAdmit Phy: Ordering Phy:Isrrael Garcia DO cc: ~ CT angio chest PE protocol CLINICAL HISTORY: PE TECHNIQUE: Multidetector row helical CT of the chest was performed with ang iographic protocol. Coronal and sagittal reformations were obtained. Coronal and sagittal MIPS were obtained from the axial data set and were submitted for review. Automated dose lowering techniques and/or adjustment according to patient size were utilized for this exam. CT DOSE: 1522.56 mGycm Comparison: Comparison is made to chest radiograph 08/09/2022 FINDINGS: Lungs and pleura: Normal. Heart and pericardium: Heart size is normal. No pericardial effusion. Vessels: No evidence of pulmonary embolism. Mediastinum and eric: Unremarkable. Chest wall and lower neck: Unremarkable. Abdomen: For findings below the diaphragm, please refer to CT of the abdomen dated the same. Bones: Unremarkable. IMPRESSION: No evidence of pulmonary embolism. ACT 112: Negative or not required by law. Electronically signed by: Orlando Mendieta M.D. 08/09/2022 3:47 PM Dictated:08/09/22 1535 Transcribed: 08/09/22 1539 [facility], [place] [phone] XRay Report Patient:BOSTON SANTOYO V Admit Date:08/09/22 MR#:[id number] Address1:[address] [place] [address] Acct ID:[id number] Address2: Date:1995 [facility] Zip:[place] [address] Age:26 Location:ED Sex:F Room/Bed: Att Phy: Diagnosis:REF BY , ALLC, ABDOMINAL PAIN, PELVIC PAIN Jana Phy:PCP,NO Service Date:08/09/22 Benjamin Phy: Interpreting Phy:Jose Schaeffer MDAdmit Phy: Ordering Phy:Chandler Burden DO cc: ~ XR chest 1V portable CLINICAL HISTORY: Fever. COMPARISON STUDY: No previous studies for comparison. FINDINGS: Lung volumes are mildly diminished. Lungs are clear. There is no pneumothorax or pleural effusion. Cardiac size is normal. Mediastinal contours are normal. There is no evidence for pulmonary edema. IMPRESSION: No acute cardiopulmonary findings. Low lung volumes. ACT 112: Negative or not required by law. Electronically signed by: Jose Schaeffer M.D. 08/09/2022 3:01 PM Dictated:08/09/22 1500 Transcribed: 08/09/22 1500 Supervising Physician Co-Signing Physician Notes Attending addendum: I have physically seen this patient, have supervised the medical residents activities, and agree with the H&P unless as otherwise noted. Assessment and Plan: Hepatic abscess- 3.7 x 2.6 cm hepatic abscess noted on CT Likely septic embolus from endometritis IV vancomycin, Flagyl 5 mg IV every 8 hours, cefepime 2 g IV every 12 hours, fluconazole IV empiric treatment Patient has been accepted at [facility], has will need IR assessment NPO after midnight LR at 125 mils per hour Zofran 4 mg IV every 6 hours as needed Famotidine 20 mg IV every 12 hours Pain medications as noted Follow blood cultures and sensitivity Serial CBC with differential and chemistry profile Endometritis- Concern for retained products of conception from miscarriage in June Antibiotics as above To be addressed at tertiary care center Remaining orders and notations as noted Resident Activity Tracking Resident Involvement: Resident Care Provided Care Provided: Adult Hospital Medicine
[2022-08-09] MEDS ORDERED: MoRPHine SULFATE 2 MG/ML CARP IV PRN (23:24)
[2022-08-09] MEDS ORDERED: MoRPHine SULFATE 4 MG/ML 1 ML CARP\\VIAL IV PRN (23:24)
[2022-08-10] MEDS ORDERED: diphenhydrAMINE 50 MG/ML VIAL IV STA (01:47)
[2022-08-10] MEDS: ACETAMINOPHEN 1,000 MG/100 ML VIAL IV PRN ×3 (01:47→21:38)
[2022-08-10] MEDS ORDERED: FAMOTIDINE 20 MG in SYRINGE 3 ML IV ONE (02:00)
[2022-08-10] MEDS ORDERED: DOXYCYCLINE HYCLATE 100 MG in DEXTROSE 5% 100 ML IV SCH (02:00)
[2022-08-10] MEDS: FLUCONAZOLE 200 MG/100 ML BAG IV SCH ×2 (02:05→03:58)
--- NOTE | 2022-08-10 03:32 | Pharmacy Report ---
Pharmacy PK ABX Note - Date of Service August 10, 2022 - Assessment and Plan Assessment 26 year old F receiving Vancomycin/Flagyl/Unasyn/fluconazole empirically for treatment of endometritis/hepatic abscess. Cultures pending. Day # 1 of antimicrobial therapy. Plan Vancomycin * Loading dose: 2250mg IV x 1 * Maintenance dose: 1500mg IV every 12 hours * Regimen is predicted to achieve target AUC/SHARLA of 400-600 mg/L.hr * Will check a trough level if therapy is continued past 48 hours. Pharmacy will continue to follow and will adjust dose/frequency as necessary. Thank you. Pharmacy has transitioned to AUC monitoring for vancomycin. AUC/SHARLA is the preferred PK/PD target and is associated with decreased risk of nephrotoxicity compared to traditional trough targets.
[2022-08-10] MEDS: LACTATED RINGER'S 1,000 ML IV SCH ×3 (04:50→16:45)
[2022-08-10] MEDS: AMPICILLIN/SULBACTAM SOD 3,000 MG in 0.9 % SODIUM CHLORIDE 100 ML IV SCH (04:53)
--- NOTE | 2022-08-10 06:12 | Electrocardiogram Report ---
Test Reason : Blood Pressure : / mmHG Vent. Rate : 107 BPM Atrial Rate : 107 BPM P-R Int : 160 ms QRS Dur : 078 ms QT Int : 344 ms P-R-T Axes : 036 028 014 degrees QTc Int : 459 ms Sinus tachycardia Otherwise normal ECG No previous ECGs available Confirmed by Maksim Lagunas ([id number]) on 08/10/2022 6:11:34 AM Referred By: Brooklyn Downs Confirmed By:Maksim Lagunas
[2022-08-10] MEDS: CEFEPIME 2,000 MG in SYRINGE 0 ML IV SCH ×4 (06:14→22:09)
[2022-08-10] MEDS: metroNIDAZOLE 500 MG/100 ML BAG IV SCH ×3 (06:15→22:08)
[2022-08-10 06:34] LABS: Basophils # (auto) 0.03 K/uL (0-0.2); Basophils % (auto) 0.3 %; Hematocrit (blood only) 25.5 % (34.1-44.9); Hemoglobin 8.2 g/dl (12.0-16.0); Lymphocytes # (auto) 1.31 K/uL (1.2-3.4); Lymphocytes % (auto) 12.9 %; Mean Corpuscular Hemoglobin 25.4 pg (25.0-34.0); Mean Corpuscular Hgb Conc 32.2 g/dL (32.0-36.0); Mean Corpuscular Volume 78.9 fL (80.0-100.0); Mean Platelet Volume 9.1 fL (9.4-12.3); Monocytes # (auto) 0.98 K/uL (0.24-0.82); Monocytes % (auto) 9.7 %; Neutrophils # (auto) 7.62 K/uL (1.4-6.5); Neutrophils % (auto) 75.1 %; Platelet Count 288 K/uL (130-400); RDW Coefficient of Variation 13.2 % (11.5-14.5); Red Blood Count 3.23 M/uL (3.93-5.22); White Blood Count 10.14 K/ul (4.8-10.8)
[2022-08-10 07:00] LABS: Albumin Globulin Ratio 1.2 (0.9-2); Albumin Level 3.7 gm/dl (3.4-5.0); BUN Creatinine Ratio 9.9 (10-20); Bilirubin,Total 0.6 mg/dl (0.2-1.0); Calcium 8.6 mg/dl (8.5-10.1); Creatinine Clr Calc Pharmacy 131.7 ml/min; Est GFR (African American) 135.3 ml/min; Est GFR (Non-African American) 116.7 ml/min; Globulin 3.2 gm/dl (2.5-4.0); Potassium 3.7 mmol/L (3.5-5.1); Total Protein 6.9 gm/dl (6.0-8.3)
[2022-08-10] MEDS ORDERED: diphenhydrAMINE Capsule 25 MG CAP PO PRN (08:16)
[2022-08-10] MEDS: ONDANSETRON INJ 2 MG/ML 2 ML VIAL IV PRN ×2 (08:50→22:13)
[2022-08-10] MEDS ORDERED: KETOROLAC 30 MG/ML VIAL IV ONE (08:57)
[2022-08-10] MEDS ORDERED: FERROUS SULFATE 325 MG TAB PO SCH (09:00)
[2022-08-10] MEDS ORDERED: VANCOMYCIN HCL 1,500 MG in SODIUM CHLORIDE 0.9% 500 ML IV SCH (10:00)
--- NOTE | 2022-08-10 12:41 | Discharge Summary ---
Date of Service August 10, 2022 Admission HPI Per Admitting Provider [place] is a 26 yo female with PMHx of anemia, currently undergoing infertility evaluation/treatments, presented to the [facility] ER on 08/09/22 for concern of endometritis. Patient states that about 1 month ago, she was found to have a missed after spontaneous while undergoing infertility workup. This was her first confirmed . She underwent medical management with cytotec. Patient subsequently had 29 days of vaginal bleeding which stopped last week. Over the weekend (5 days ago), patient developed a foul smelling yellow/green vaginal discharge with associated abdominal pain, fevers and c hills. The abdominal pain is mostly located in the suprapubic region with an additional region of pain in the right upper quadrant. Patient was started on Augmentin as outpatient and notes the the discharge has improved. Other symptoms including pain, fever, and chills have been persistent since onset 5 days ago. She does note some associated shortness of breath but describes this as more of a difficulty taking a deep breath due to the abdominal pain. She denies nausea or vomiting. Denies CP. Denies RAMOS. Patient was evaluated by her BRIDGE CONSTRUCTION INSPECTOR in office today for her symptoms and referred to the ER due to the concern of endometritis. In the ER, patient remains febrile with Tmax 39.5. Labs reveal mildly elevated WBC 11.6. Hgb 9.1. BMP unremarkable. Elevated CRP at 13.47. HCG 4. UA unremarkable. COVID negative. CXR is negative. Chest CTA is without evidence of PE. Abd/pelvis CT with " findings suggestive of a 3.7 x 2.6 cm segment 7 hepatic abscess. Trace right pleural effusion. Mild hepatosplenomegaly. No bowel obstruction. No bowel wall thickening. Normal appendix. Trace fluid within the pelvis." Due to the concern for hepatic abscess, recommendations made for patient to be transferred to tertiary care center for IR evaluation to address the hepatic abscess as well as D&C. Patient will be admitted pending transfer/bed availability. Principal Diagnosis 1. Hepatic abscess 2. Endometritis 2/2 incomplete Discharge Exam GENERAL: 26 yo Well-developed, well-nourished young WF. NAD. LUNGS: Clear to auscultation bilaterally. No W/R/R. CARDIOVASCULAR: Regular rate and rhythm. No M/G/R. No JVD. ABDOMEN: Soft, nondistended but moderately TTP in RUQ and suprapubic regions. BS normoactive x 4 quad. EXTREMITIES: No edema. Non-tender. Peripheral pulses +2/4. NEUROLOGIC: A&O x3. Nonfocal PSYCHIATRIC: Cooperative. Appropriate mood and affect. SKIN: Warm, dry, intact. No rashes or lesions. Discharge Data Allergies Allergy/AdvReac Type Severity Reaction Status Date / Time pollen extracts Allergy Intermediate ITCHY Verified 08/09/22 18:12 EYES, SNEEZING, CONGESTION vancomycin Allergy Rash, Verified 08/10/22 12:34 itching Consultations 08/09/22 20:54 ED Decision to Admit Stat 08/10/22 12:32 Burn CD for patient Stat Ordered Studies Chest X-Ray 08/09/22 13:27 XR chest 1V portable CLINICAL HISTORY: Fever. COMPARISON STUDY: No previous studies for comparison. FINDINGS: Lung volumes are mildly diminished. Lungs are clear. There is no pneumothorax or pleural effusion. Cardiac size is normal. Mediastinal contours are normal. There is no evidence for pulmonary edema. IMPRESSION: No acute cardiopulmonary findings. Low lung volumes. ACT 112: Negative or not required by law. Electronically signed by: Jose Schaeffer M.D. 08/09/2022 3:01 PM Chest CTA 08/09/22 13:31 CT angio chest PE protocol CLINICAL HISTORY: PE TECHNIQUE: Multidetector row helical CT of the chest was performed with angiographic protocol. Coronal and sagittal reformations were obtained. Coronal and sagittal MIPS were obtained from the axial data set and were submitted for review. Automated dose lowering techniques and/or adjustment according to patient size were utilized for this exam. CT DOSE: 1522.56 mGycm Comparison: Comparison is made to chest radiograph 08/09/2022 FINDINGS: Lungs and pleura: Normal. Heart and pericardium: Heart size is normal. No pericardial effusion. Vessels: No evidence of pulmonary embolism. Mediastinum and eric: Unremarkable. Chest wall and lower neck: Unremarkable. Abdomen: For findings below the diaphragm, please refer to CT of the abdomen dated the same. Bones: Unremarkable. IMPRESSION: No evidence of pulmonary embolism. ACT 112: Negative or not required by law. Electronically signed by: Orlando Mendieta M.D. 08/09/2022 3:47 PM Abdomen/Pelvis CT 08/09/22 13:32 CT OF THE ABDOMEN AND PELVIS WITH CONTRAST CLINICAL HISTORY: Right-sided abdominal pain. COMPARISON STUDY: Pelvic ultrasound July 30, 2022. TECHNIQUE: Following IV administration of 105 mL of Optiray, axial images of the abdomen and pelvis were obtained from the lung bases to the proximal femurs. Images were reviewed in the axial, sagittal, and coronal planes. IV contrast was administered without complication. Automated exposure control was utilized for the study. A dose lowering technique was utilized adhering to the principles of ALARA. FINDINGS: Please note that the chest CT will be reported separately. There is a trace right pleural effusion. Note is made of a 3.7 x 2.6 cm segment 7 hypodense focus within the liver with a peripherally enhancing wall with probable associated edema. This is suggestive of a hepatic abscess. There is mild hepatosplenomegaly. No additional hepatic abscesses are present. The adrenal glands, kidneys and pancreas are unremarkable. There is no biliary or pancreatic ductal dilatation. There is no evidence for a bowel obstruction. The caliber and wall thickness of small and large bowel are normal. The appendix is normal. There is trace fluid within the pelvis. The lymphadenopathy is present. Major vasculature is patent. No acute fracture or suspicious lesion within the visualized skeletal structures is present. IMPRESSION: 1. Findings suggestive of a 3.7 x 2.6 cm segment 7 hepatic abscess. Trace right pleural effusion. 2. Mild hepatosplenomegaly. 3. No bowel obstruction. No bowel wall thickening. Normal appendix. 4. Trace fluid within the pelvis. ACT 112: Negative or not required by law. Electronically signed by: Jose Schaeffer M.D. 08/09/2022 3:44 PM Hospital Course (1) Abscess of liver: - CT abd/pelvis: "findings suggestive of a 3.7 x 2.6 cm segment 7 hepatic abscess. Trace right pleural effusion. Mild hepatosplenomegaly. No bowel obstruction. No bowel wall thickening. Normal appendix. Trace fluid within the pelvis." - Mild leukocytosis with WBC 11.6 and Tmax 39.5 - Given concomitant pelvic infection/endometritis, will treat abscess and infection with broad spectrum antibiotic and antifungals - IV vanco, flagyl, doxycycline, and unasyn given in the ER - Continued on IV Vanco and IV flagyl. Started IV cefepime and IV fluconazole. - Patient to be made NPO pending transfer and potential procedural intervention - IVF with LR at 125 cc/hr - IV analgesic and antiemetics - Blood cultures ordered and pending, normal wbc count but elevated ESR and CRP - Due to the concern for hepatic abscess, recommendations made for patient to be transferred to tertiary care center for IR evaluation to address the hepatic abscess as well as D&C (case was d/w BRIDGE CONSTRUCTION INSPECTOR professional skateboarder with ER provider) - Pt accepted at [facility] and bed now available. Transportation arrangements will be made this afternoon to get her to [facility]. (2) Endometritis: - ? concern for retained products of conception requiring D&C - Abx management as above - IV analgesics and antiemetics (3) Incomplete : with retained tissue in uterus causing #2 (4) Anemia: - Chronic anemia, slightly worse this AM but likely in part d/t dilution from IVF - Continue home ferrous sulfate 325mg po daily Plan She is medically and hemodynamically stable for ground transport to [facility]. Chart copied for transfer and images burned to CD for accepting facility. Plan d/w Dr. Suraj Burr who is in agreement with aforementioned. Total Time Total Time Spent Total Time Spent (In Minutes): >30 minutes Discharge Plan Discharge Items Patient Disposition: Transfer Acute Care Hospital Reason For Visit: ENDOMETRITIS AND HEPATIC ABSCESS Discharge Diagnosis: inflammation of uterus with possible infection liver abscess Activity: As commented below Activity Comment: bedrest for now Non-emergency contact: Surgeon and Hospitality Housekeeper Call non-emergency contact if: you have any medication questions and your symptoms worsen Follow-up/Referrals: PCP,NO [Primary Care Provider] - Diet: Nothing by Mouth Addtl Attending Provider Instructions: You were hospitalized due to abdominal pain and retained tissue in your uterus. Your work up demonstrated the concern for presence of an abscess in your liver. As a result, you will require a higher level of care and services that are unable to be provided at [facility]. Therefore, you have been accepted to [facility] in [place]. Medical transportation is being arranged on your behalf to get you to that facility. In the meantime, you will not be allowed to eat or drink due to planned procedures to drain the liver abscess and clean out the contents in your uterus. You will be arranged follow up upon discharge from [facility]. Ideally, you should also establish care with a primary care provider who you can follow with on a regular basis for routine medical care. Pending Studies at Discharge: No Stand-Alone Forms: My [facility] Skilled Items Patient informed of condition?: Yes DNR: No Discharge Level of Care: Other Communicable Disease: No Discharge Prognosis: Stable Lines: Peripheral IV Urinary Catheter: No Medications and DC Order Prescriptions: Continued acetaminophen [Tylenol Extra Strength] 500 mg Tablet 1,000 mg PO DIRECTED PRN (Reason: Pain) ketorolac 10 mg Tablet 10 mg PO TID PRN (Reason: Pain) ferrous sulfate [iron] 325 mg (65 mg iron) Tablet 325 mg PO DAILY docusate sodium [Colace] 100 mg Capsule 100 mg PO DIRECTED PRN (Reason: Constipation) Discontinued amoxicillin-pot clavulanate 875-125 mg tablet 1 tab PO BID Qty: 20 0RF Rx Instructions: STARTED 08/06/22 FOR 10 DAYS metronidazole [Flagyl] 500 mg Tablet 500 mg PO TID Rx Instructions: STARTED 08/08/22 FOR 10 DAYS sulfamethoxazole-trimethoprim [Bactrim DS] 800-160 mg Tablet 1 tab PO BID Rx Instructions: STARTED 08/08/22 FOR 7 DAYS Discharge Orders: Discharge Order (Routine); Ordered 08/10/22 Ordered By: Magalie Bran Admission Data Admit Date/Time: 08/09/22 21:48 Attending Provider: Suraj Burr Admit Provider: Lissa Rossi Primary Care Provider: PCP,NO Other Providers: Juice Zhu Other Interventions: Discharge Summary Assessment (RN) Last Done: 08/10/22 13:50 Supervising Physician Co-Signing Physician Notes I supervised Magalie Bran PA-C on the care of this patient. I did not see this patient in person as they were admitted <24 hours. The plan is as written in her note except for any following changes/exceptions: None Complex infection, possibly resulting from retained productions. Transfer to [facility]. Coding Level of Care Code D/C DAY MANAGEMENT >30 MINS Diagnoses Abscess of liver K75.0 Endometritis N71.9 Incomplete O03.4 Anemia D64.9
[2022-08-10] MEDS ORDERED: KETOROLAC 30 MG/ML VIAL IV PRN (16:45)
--- NOTE | 2022-08-10 19:58 | Billing Data ---
Date of Service August 10, 2022 Coding Level of Care Code INT OBSERVATION CARE 70M LVL 3
--- NOTE | 2022-08-10 22:03 | Communication Note ---
Date of Service: August 10, 2022 ~10pm Was notified by nursing about chest pain. Resolved by time of my exam. Patient states it is the same intermittent chest pain that she has had this admission; she thought exacerbated by chills, alleviated w/ tylenol. Reproducible chest wall ttp. She has RUQ abd ttp. Chills may be 2/2 liver abscess or pelvic infection. Per my assessment, stable for transfer to [facility].
== END 2022-08-10 22:47 | disposition short-term general hospital (02) | DRG 443 ==
LOC: ED 12:36 → SUATTDRO 21:48 → 3E 21:48